=== PATIENT | female | born 2000 | race African-American/Black ===

== ENCOUNTER 2018-06-02 17:33 | Emergency (ER) | payer MEDICAID ==
[2018-06-02 17:57] VITALS: BP 125/89
[2018-06-02 19:02] LABS: Bacteria,Urine 1+ /HPF (Negative); Bilirubin,Urine NEG (Negative); Blood,Urine NEG (Negative); Color,Urine Yellow (Yellow); Mucus,Urine FEW /HPF; Protein,Urine <15 mg/dL mg/dL (Negative); Urobilinogen,Urine < 2.0 mg/dL (<2.0)
[2018-06-02 19:05] LABS: HCG Qualitative,Urine Negative (Negative)
--- NOTE | 2018-06-02 19:40 | Emergency Department Report ---
ED Abdominal Pain HPI - General Chief Complaint: Abdominal Pain Stated Complaint: ABD PAIN Time Seen by Provider: 06/02/18 19:18 Source: patient Mode of arrival: Ambulatory Limitations: No Limitations - History of Present Illness Initial Comments: 17 year old [place] female comes in complaining of left side abdominal pain that started this morning. Patient states it really hurts when she is sitting up. Patient denies any nausea no vomiting no diarrhea. She does admit to some constipation and had a little stool yesterday. Patient denies any dysuria no vaginal bleeding or vaginal discharge. She reports that the pain is dull and achy and intermittent. Patient reports she has irregular periods. Has no past medical history currently takes no medications on a daily basis and has no known drug allergies. MD Complaint: abdominal pain -: This morning Location: LLQ Radiation: none Migration to: no migration Severity scale (0 -10): 4 Quality: aching Consistency: constant Improves With: nothing Worsens With: other (sitting up) Associated Symptoms: constipation. denies: nausea, vomiting, diarrhea, fever, dysuria, hematemesis Treatments Prior to Arrival: other (none) - Related Data Previous Rx's Medication Instructions Recorded Last Taken Type Polyethylene Glycol 3350 [Miralax 17 gm PO QDAY #1 box 06/02/18 Unknown Rx 3350] Allergies Allergy/AdvReac Type Severity Reaction Status Date / Time No Known Allergies Allergy Unverified 04/26/15 15:21 ED Review of Systems ROS: Stated complaint: ABD PAIN Other details as noted in HPI Comment: All other systems reviewed and negative Constitutional: denies: chills, fever Eyes: denies: eye pain, eye discharge, vision change ENT: denies: ear pain, throat pain Respiratory: denies: cough, shortness of breath, wheezing Cardiovascular: denies: chest pain, palpitations Endocrine: no symptoms reported Gastrointestinal: abdominal pain (left lower quadrant). denies: nausea, vomiting Genitourinary: denies: dysuria, hematuria, discharge Musculoskeletal: denies: back pain, joint swelling, arthralgia Skin: denies: rash, lesions Neurological: denies: headache, weakness, paresthesias Psychiatric: denies: anxiety, depression Hematological/Lymphatic: as per HPI ED Past Medical Hx - Past Medical History Previous Medical History?: No - Surgical History Past Surgical History?: No - Social History Smoking Status: Never Smoker Substance Use Type: None - Medications Home Medications: Home Medications Medication Instructions Recorded Confirmed Last Taken Type Polyethylene Glycol 3350 [Miralax 17 gm PO QDAY #1 box 06/02/18 Unknown Rx 3350] ED Physical Exam - General Limitations: No Limitations General appearance: alert, in no apparent distress - Head Head exam: Present: atraumatic, normocephalic - Eye Eye exam: Present: normal appearance - ENT ENT exam: Present: mucous membranes moist - Neck Neck exam: Present: normal inspection - Respiratory Respiratory exam: Present: normal lung sounds bilaterally. Absent: respiratory distress - Cardiovascular Cardiovascular Exam: Present: regular rate, normal rhythm. Absent: systolic murmur, diastolic murmur, rubs, gallop - GI/Abdominal GI/Abdominal exam: Present: soft, tenderness (lower quadrant), normal bowel sounds. Absent: distended, guarding, rebound - Extremities Exam Extremities exam: Present: normal inspection - Back Exam Back exam: Present: normal inspection - Neurological Exam Neurological exam: Present: alert, oriented X3 - Psychiatric Psychiatric exam: Present: normal affect, normal mood - Skin Skin exam: Present: warm, dry, intact, normal color. Absent: rash ED Course Vital Signs 06/02/18 17:51 Temperature 99.3 F Pulse Rate 93 H Respiratory 18 Rate Blood Pressure 125/89 O2 Sat by Pulse 98 Oximetry Critical care attestation.: If time is entered above; I have spent that time in minutes in the direct care of this critically ill patient, excluding procedure time. ED Disposition Clinical Impression: Left lower quadrant pain Constipation Qualifiers: Constipation type: unspecified constipation type Qualified Code(s): K59.00 - Constipation, unspecified Disposition: DC- TO HOME OR SELFCARE Is pt being admited?: No Does the pt Need Aspirin: No Condition: Stable Instructions: Abdominal Pain (ED) Additional Instructions: Please increase her water intake use MiraLAX daily increase her food intake that high in fiber fresh vegetables raw fruits. Prescriptions: Polyethylene Glycol 3350 [Miralax 3350] 17 gm PO QDAY #1 box
--- NOTE | 2018-06-02 20:45 | XRay Report ---
FINAL REPORT PROCEDURE: XR ABDOMEN 1V AP TECHNIQUE: Abdominal radiograph, single supine AP view. HISTORY: lower quadrant pain COMPARISON: No prior studies are available for comparison. FINDINGS: Bowel gas pattern:Fluid in nondistended loops of large and small bowel. There is mild to moderate sto ol. Masses or calcifications:None. Bony structures:No significant abnormality. Other:None. IMPRESSION: No acute abnormality
== END 2018-06-02 21:10 | disposition home or self-care (01) ==
LOC: ED 17:33
DX: R10.32 Left lower quadrant pain (principal); K59.00 Constipation, unspecified
CPT/HCPCS: 74018; 81001; 81025; 99283